=== PATIENT | female | born 1945 | race Caucasian/White ===

== ENCOUNTER 2016-12-16 18:43 | Emergency (ER) | payer MEDICARE ==
[~2016-12-16] VITALS: Ht 165.1 cm; Wt 106.8 kg
[~2016-12-16 18:43] MED LIST: ASP81TEC PO; HYDR1TAB91 PO; IBUP-1827 PO; MULT-1018 PO; ONDAN8ODT PO
[2016-12-16 18:46] VITALS: BP 127/71; PULSE 77; RESP 18; O2SAT 97
[2016-12-16] MEDS ORDERED: CHOL100043 PO (19:19)
[2016-12-16] MEDS ORDERED: ERGO2000 PO (19:19)
[2016-12-16] MEDS ORDERED: MV-M1CAP18 PO (19:19)
--- NOTE | 2016-12-16 19:40 | ED.REPORT ---
HPI-General Illness Date of Service Dec 16, 2016 ED Provider: Mesfin Willoughby Patient is a 71 year old female with a hx of hyperlipidemia and breast cancer who presents to the ED from Urgent Care complaining of dizziness onset 1700 while shopping that lasted for a few minutes. Associated symptoms include lightheadedness, blurred vision, and a "strange" pressure feeling across her forehead. She denies LOC, headache, weakness, difficulties speaking or swallowing, chest pain, palpitations, or any other symptoms. She had a BP of 96/53 at . She has only been eating one meal a day and has not been drinking fluids appropriately. She is not on blood thinners Nursing Notes Stated Complaint: DIZZINESS Chief Complaint: General Complaint Nursing Notes Reviewed: Yes Allergies: Coded Allergies: Penicillins (Verified Allergy, Unknown, 12/16/16) Sulfa (Sulfonamide Antibiotics) (Verified Allergy, Unknown, 12/16/16) Scheduled Cholecalciferol (Vitamin D3) (Vitamin D) 1,000 Unit Tablet 1,000 UNIT PO DAILY Ergocalciferol (Vitamin D2) (Vitamin D2) 2,000 Unit Tablet 2,000 UNIT PO DAILY MULTIVITAMIN-Expunged Drug, Do Not Renew! (MULTI VITAMIN -Expunged Drug, Do Not Renew!) 1 Each Tablet 1 EACH PO DAILYWM Mv-Mn/Lutein/Zeax/Bilber/Hb277 (Macular Health Formula Capsule) 5 Mg-1 Mg-7.5 Mg Capsule 1 EACH PO DAILY General Time Seen by MD: 19:39 Chief Complaint Dizziness Hx Obtained From: Patient Arrived By: Walk-in Sudden in Onset?: Yes Onset Occurred: 1 - 4 hours ago Symptom Duration: 1 - 15 minutes Similar Sx Previous: No Past Medical History Past Medical History Obstructive sleep apnea Reports: Cancer, Hyperlipidemia, Denies: Stroke Past Surgical History Lumpectomy x3 Reports: Tonsillectomy Reports: Tubal ligation Smoking History Never Smoker Social History Alcohol Use: "Social" Ambulatory Status Independent Review of Systems +"strange" pressure feeling across her forehead Full Review of Systems Eyes: Reports: Blurred bilateral Cardiovascular: Denies: Chest pain, Palpitations GI: Denies: Dysphagia Neurologic: Reports: Dizziness, Lightheaded, Denies: Change LOC, Headache, Slurred speech, Syncope Complete sys rev & neg: except as marked. Physical Exam Vital Signs Vital Signs Date Time Temp Pulse Resp B/P Pulse Ox O2 Delivery O2 Flow Rate FiO2 12/16/16 21:13 36.7 76 15 129/74 96 Room Air 12/16/16 18:46 36.1 77 18 127/71 97 Room Air Initial VS: Reviewed, Vital signs normal Head / Eyes: Atraumatic, Normocephalic Neck: Full range of motion Extremities: Vascular intact, Neuro intact Skin: Warm, Dry Psychiatric: Mood/affect normal, Behavior normal, Normal thought content General/Constitutional: Awake, Alert, No acute distress, Well appearing, Well developed Respiratory / Chest: Breath sounds NL, Breath sounds = bilat, No respiratory distress Cardiovascular: Heart rate NL, Regular rhythm, Heart sounds NL, No gallop, No murmurs, No rubs Abdomen: Atraumatic, Soft, Non-tender Neurologic: Oriented X3, Speech NL, CN II - XII intact Strength 5/5 in all 4 extremities Interpretation & Diagnostics Lab Results Interpretation Result Diagram: 12/16/16200412/16/162004 Test 12/16/16 20:05 White Blood Count 8.6th/mm3 (3.8-10.1) Red Blood Count 4.48mil/mm3 (3.90-5.20) Hemoglobin 14.1g/dL (12.0-15.6) Hematocrit 42.6% (35.0-46.0) Mean Corpuscular Volume 95.1fL (81-100) Mean Corpuscular Hemoglobin 31.5pg (27.0-35.0) Mean Corpuscular Hemoglobin Concent 33.1% (32.0-37.0) Red Cell Distribution Width 13.4% (12.3-15.4) Platelet Count 225bil/L (150-400) Neutrophils (%) (Auto) 72.5% (40-74) Lymphocytes (%) (Auto) 18.1% (14-46) Monocytes (%) (Auto) 6.4% (4-12) Eosinophils (%) (Auto) 2.3% (0-5) Basophils (%) (Auto) 0.6% (0-3) Sodium Level 140mEq/L (134-144) Potassium Level 4.2mEq/L (3.5-5.2) Chloride Level 100mEq/L (97-108) Carbon Dioxide Level 24mmol/L (18-29) Blood Urea Nitrogen 18mg/dL (8-27) Creatinine 1.00mg/dL (0.57-1.00) Estimat Glomerular Filtration Rate 79mL/min (>59) Glucose Level 119mg/dL (60-99) Calcium Level 9.6mg/dL (8.5-10.1) Magnesium Level 1.9mg/dL (1.6-2.6) Total Bilirubin 0.4mg/dL (0.0-1.2) Aspartate Amino Transf (AST/SGOT) 15U/L (0-50) Alanine Aminotransferase (ALT/SGPT) 13U/L (0-32) Alkaline Phosphatase 70U/L (25-165) Troponin T < 0.010ug/L (0.0-0.011) Total Protein 7.3g/dL (6.4-8.4) Albumin 4.3g/dL (3.4-5.0) Hold Vasquez Top Tube Received (Received) ECG Interpretation ECG Interpretation: Sinus rate [address],T changes Time: 20:26 Interpreted by: ED physician Re-Eval/Medical Decision Med Decision/Clinical Course 71-year-old female presenting complaining of 2 minutes of near-syncope dizziness earlier today which resolved spontaneously. She went to urgent care and was found to have low blood pressure 90s over 60s. Shortly thereafter she arrived here and her blood pressure is normal. She denies any focal neuro deficits. No cardiac prodrome. Her neurological exam is normal. Her vital signs are stable. Her symptoms have long since resolved. Her EKG was unremarkable. Her labs were normal. Her troponins were negative. Patient declined CT scan. Suspect possible orthostatic hypotension given low blood pressure urgent care. Patient wants to go home. Given normal workup as above, she is stable for discharge with return precautions. She will follow up with primary doctor tomorrow. Time of Eval: 19:51 Re-Evaluation/Progress Note: Patient denies IV fluids at this time. Discussed plan for discharge s/p BP check. Patient understands and agrees with plan. All questions addressed at this time. Counseled Regarding: Diagnosis, Need for follow-up, When/why to return to ED Discharge & Departure Primary Impression: Near syncope Disposition: Home Discharge Condition All VS Reviewed: Yes Condition: Improved Patient Instructions: Near Syncope (ED) Additional Instructions: Thank you for entrusting us with your care. You denied IV fluids during your visit. Drink plenty of clear fluids to maintain hydration. Return to the emergency department if you experience headache, dizziness, lightheadedness, vomiting, numbness, weakness, or any other new or worsening symptoms. Referrals: Cory Campbell MD (PCP) Scribe Attestation Portions of this note were transcribed by Eden Knapp. I, Dr. Willoughby personally performed the history, physical exam and medical decision-making; I reviewed and confirmed the accuracy of the information in the transcribed note. Signed by: Eden Knapp 12/16/161954 copies to: Cory Campbell MD, Ben M MD Dec 16, 2016 19:40 EDEN KNAPP Dec 16, 2016 19:48
[2016-12-16] MEDS ORDERED: 0.9% Sodium Chloride 1,000 ML IV ONE (19:57)
[2016-12-16 20:24] LABS: BASOPHILS % (AUTO) 0.6 % (0-3); EOSINOPHILS % (AUTO) 2.3 % (0-5); MONOCYTES % (AUTO) 6.4 % (4-12); Mean Corpuscular Hemoglobin 31.5 pg (27.0-35.0); Mean Corpuscular Volume 95.1 fL (81-100); NEUTROPHILS % (AUTO) 72.5 % (40-74); Platelet Count 225 bil/L (150-400)
[2016-12-16 20:46] LABS: TROPONIN T < 0.010 ug/L (0.0-0.011)
[2016-12-16 20:56] LABS: Magnesium 1.9 mg/dL (1.6-2.6)
[2016-12-16 21:13] VITALS: BP 129/74; PULSE 76; RESP 15; O2SAT 96
== END 2016-12-16 21:08 | disposition home or self-care (01) ==
LOC: SED 18:43
DX: R55 Syncope and collapse (principal); H53.8 Other visual disturbances; E78.5 Hyperlipidemia, unspecified; Z88.0 Allergy status to penicillin; Z88.2 Allergy status to sulfonamides
CPT/HCPCS: 36415; 80053; 82948; 83735; 84484; 85025; 93005; 96360; 99285; G0463; J7030